=== PATIENT | male | born 1960 | race Two or more races ===

== ENCOUNTER 2020-10-29 22:45 | Emergency (ER) | payer OTHER ==
[~2020-10-29] VITALS: Ht 172.7 cm; Wt 90.7 kg
[2020-10-29] MEDS ORDERED: PROTONIX40 MG (22:50)
[2020-10-30] MEDS ORDERED: PEPCID AC20 MG PO (02:55)
[2020-10-30] MEDS ORDERED: ECOTRIN81 MG PO (02:55)
== END 2020-10-30 03:15 | disposition home or self-care (01) ==
LOC: ER 22:45
DX: R07.89 Other chest pain (principal); I16.0 Hypertensive urgency; I10 Essential (primary) hypertension